=== PATIENT | female | born 1960 | race African-American/Black ===

== ENCOUNTER 2016-11-13 12:14 | Emergency (ER) | payer OTHER ==
--- NOTE | 2016-11-13 12:27 | ED ---
General Adult HPI - General Stated complaint: Chest Pain Time Seen by Provider: 11/13/16 12:18 Source: patient, RN notes reviewed, old records reviewed Mode of arrival: EMS Limitations: no limitations - History of Present Illness Initial comments: This is a 55-year-old female in the ER for reevaluation chest pain. Patient expressed chest pain while in gnosticism today. Patient has history of asthma, CVA and CAD. Patient still currently with chest pain although does feel better. Patient was at a earlier today for close friend, states symptoms began during ceremony. Bystanders do think it was a panic attack - Related Data Home Medications Medication Instructions Recorded Confirmed Albuterol Inhaler [Ventolin 1 - 2 puff INHALATION RT-Q6H PRN 06/05/15 11/13/16 Inhaler] Albuterol Nebulized [Ventolin 2.5 mg INHALATION RT-Q6H PRN 06/05/15 11/13/16 Nebulized] Omeprazole [PriLOSEC] 20 mg PO AC-BRKFST PRN 06/05/15 11/13/16 PARoxetine [Paxil] 20 mg PO DAILY PRN 02/01/16 11/13/16 Allergies Allergy/AdvReac Type Severity Reaction Status Date / Time No Known Allergies Allergy Verified 11/13/16 12:52 Review of Systems ROS Statement: Those systems with pertinent positive or pertinent negative responses have been documented in the HPI. ROS Other: All systems not noted in ROS Statement are negative. Past Medical History Past Medical History: Asthma, Coronary Artery Disease (CAD), CVA/TIA, GERD/ Reflux Additional Past Medical History / Comment(s): PT STATES COLONOSCOPY RESCHEDULED DUE TO INADEQUATE BOWEL PREP. , STATES SHE BROKE HER LEFT ANKLE 06/12/15 AND HAS A CAST. History of Any Multi-Drug Resistant Organisms: None Reported Past Surgical History: Appendectomy, Heart Catheterization With Stent Additional Past Surgical History / Comment(s): laparoscopy Past Anesthesia/Blood Transfusion Reactions: No Reported Reaction Past Psychological History: Depression Smoking Status: Current every day smoker Past Alcohol Use History: Occasional Additional Past Alcohol Use History / Comment(s): has smoked on & off for "years " Past Drug Use History: None Reported - Past Family History Mother Family Medical History: No Reported History General Exam Limitations: no limitations General appearance: alert, in no apparent distress Head exam: Present: atraumatic, normocephalic, normal inspection Eye exam: Present: normal appearance, PERRL, EOMI. Absent: scleral icterus, conjunctival injection, periorbital swelling ENT exam: Present: normal exam, mucous membranes moist Neck exam: Present: normal inspection. Absent: tenderness, meningismus, lymphadenopathy Respiratory exam: Present: normal lung sounds bilaterally. Absent: respiratory distress, wheezes, rales, rhonchi, stridor Cardiovascular Exam: Present: regular rate, normal rhythm, normal heart sounds. Absent: systolic murmur, diastolic murmur, rubs, gallop, clicks GI/Abdominal exam: Present: soft, normal bowel sounds. Absent: distended, tenderness, guarding, rebound, rigid Extremities exam: Present: normal inspection, full ROM, normal capillary refill. Absent: tenderness, pedal edema, joint swelling, calf tenderness Back exam: Present: normal inspection Neurological exam: Present: alert, oriented X3, CN II-XII intact Psychiatric exam: Present: normal affect, normal mood Skin exam: Present: warm, dry, intact, normal color. Absent: rash Course Vital Signs 11/13/16 11/13/16 11/13/16 12:20 13:00 14:53 Temperature 97 F L 97.6 F Pulse Rate 71 64 60 Respiratory 18 16 15 Rate Blood Pressure 132/81 131/86 127/81 O2 Sat by Pulse 94 L 98 98 Oximetry - Reevaluation(s) Reevaluation #1: 11/13/16 15:01 States this time she feels better and the bystanders think she was having panic attack if she was having struggling with dealing with 11/13/16 15:01 EKG Findings - EKG Comments: EKG Findings:: EKG shows normal sinus rhythm rate of 70, ME 206, QRS 102, QTC 397 Medical Decision Making - Medical Decision Making 55 emailed ER for evaluation of chest pain, patient has no cardiac history, remote history of TIA, low risk and she is nonsmoker with no high blood pressure and questionable diabetes, patient was that today and began having chest pain, at this time patient's symptoms are resolved, patient would not like to stay in the hospital and can be discharged home - Lab Data Result diagrams: 11/13/16 12:40 11/13/16 12:40 Lab Results 02/11/13/16 11/13/16 Range/Units 12:40 12:40 12:40 WBC 8.7 (3.8-10.6) k/uL RBC 4.59 (3.80-5.40) m/uL Hgb 14.2 (11.4-16.0) gm/dL Hct 42.1 (34.0-46.0) % MCV 91.6 (80.0-100.0) fL MCH 30.8 (25.0-35.0) pg MCHC 33.7 (31.0-37.0) g/dL RDW 13.8 (11.5-15.5) % Plt Count 240 (150-450) k/uL Neutrophils % 62 % Lymphocytes % 29 % Monocytes % 4 % Eosinophils % 1 % Basophils % 1 % Neutrophils # 5.4 (1.3-7.7) k/uL Lymphocytes # 2.6 (1.0-4.8) k/uL Monocytes # 0.4 (0-1.0) k/uL Eosinophils # 0.1 (0-0.7) k/uL Basophils # 0.1 (0-0.2) k/uL PT (9.0-12.0) sec INR (<1.1) APTT (22.0-30.0) sec Sodium 140 (137-145) mmol/L Potassium 4.7 (3.5-5.1) mmol/L Chloride 107 (98-107) mmol/L Carbon Dioxide 21 L (22-30) mmol/L Anion Gap 12 mmol/L BUN 9 (7-17) mg/dL Creatinine 0.61 (0.52-1.04) mg/dL Est GFR (MDRD) Af Amer >60 (>60 ml/min/1.73 sqM) Est GFR (MDRD) Non-Af >60 (>60 ml/min/1.73 sqM) Glucose 228 H (74-99) mg/dL Calcium 9.6 (8.4-10.2) mg/dL Magnesium 2.0 (1.6-2.3) mg/dL Total Bilirubin 0.5 (0.2-1.3) mg/dL AST 21 (14-36) U/L ALT 28 (9-52) U/L Alkaline Phosphatase 90 (38-126) U/L Total Creatine Kinase 77 (30-135) U/L CK-MB (CK-2) 0.3 (0.0-2.4) ng/mL CK-MB (CK-2) Rel Index 0.4 Troponin I <0.012 (0.000-0.034) ng/mL Total Protein 7.3 (6.3-8.2) g/dL Albumin 4.4 (3.5-5.0) g/dL Lipase 122 (23-300) U/L 11/13/16 Range/Units 12:40 WBC (3.8-10.6) k/uL RBC (3.80-5.40) m/uL Hgb (11.4-16.0) gm/dL Hct (34.0-46.0) % MCV (80.0-100.0) fL MCH (25.0-35.0) pg MCHC (31.0-37.0) g/dL RDW (11.5-15.5) % Plt Count (150-450) k/uL Neutrophils % % Lymphocytes % % Monocytes % % Eosinophils % % Basophils % % Neutrophils # (1.3-7.7) k/uL Lymphocytes # (1.0-4.8) k/uL Monocytes # (0-1.0) k/uL Eosinophils # (0-0.7) k/uL Basophils # (0-0.2) k/uL PT 10.6 (9.0-12.0) sec INR 1.0 (<1.1) APTT 24.1 (22.0-30.0) sec Sodium (137-145) mmol/L Potassium (3.5-5.1) mmol/L Chloride (98-107) mmol/L Carbon Dioxide (22-30) mmol/L Anion Gap mmol/L BUN (7-17) mg/dL Creatinine (0.52-1.04) mg/dL Est GFR (MDRD) Af Amer (>60 ml/min/1.73 sqM) Est GFR (MDRD) Non-Af (>60 ml/min/1.73 sqM) Glucose (74-99) mg/dL Calcium (8.4-10.2) mg/dL Magnesium (1.6-2.3) mg/dL Total Bilirubin (0.2-1.3) mg/dL AST (14-36) U/L ALT (9-52) U/L Alkaline Phosphatase (38-126) U/L Total Creatine Kinase (30-135) U/L CK-MB (CK-2) (0.0-2.4) ng/mL CK-MB (CK-2) Rel Index Troponin I (0.000-0.034) ng/mL Total Protein (6.3-8.2) g/dL Albumin (3.5-5.0) g/dL Lipase (23-300) U/L - Radiology Data Radiology results: report reviewed (Chest x-ray is negative for acute disease), image reviewed Disposition Clinical Impression: Atypical chest pain, Grief reaction Disposition: HOME SELF-CARE Condition: Good Instructions: Chest Pain (ED), Anxiety (ED) Referrals: Edy Self DO [Primary Care Provider] - 1-2 days
[2016-11-13 13:01] LABS: Basophils # (A) 0.1 k/uL (0-0.2); Basophils % (A) 1 %; CH 30.8; CHCM 33.8; Eosinophils # (A) 0.1 k/uL (0-0.7); Eosinophils % (A) 1 %; HCT 42.1 % (34.0-46.0); HDW 2.24; HGB 14.2 gm/dL (11.4-16.0); Luc # (Auto) 0.19; Luc % (Auto) 2; Lymphocytes # (A) 2.6 k/uL (1.0-4.8); Lymphocytes % (A) 29 %; MCH 30.8 pg (25.0-35.0); MCHC 33.7 g/dL (31.0-37.0); MCV 91.6 fL (80.0-100.0); Monocytes # (A) 0.4 k/uL (0-1.0); Monocytes % (A) 4 %; Neutrophils # (A) 5.4 k/uL (1.3-7.7); Neutrophils % (A) 62 %; RBC 4.59 m/uL (3.80-5.40); RDW 13.8 % (11.5-15.5); WBC 8.7 k/uL (3.8-10.6); WBC (Perox) 8.55
[2016-11-13 13:28] LABS: ALT 28 U/L (9-52); AST 21 U/L (14-36); Alkaline Phosphatase 90 U/L (38-126); Anion Gap 12 mmol/L; Blood Urea Nitrogen 9 mg/dL (7-17); Calcium 9.6 mg/dL (8.4-10.2); Carbon Dioxide 21 mmol/L (22-30); Chloride 107 mmol/L (98-107); Glucose 228 mg/dL (74-99); Non-African American GFR(MDRD) >60 (>60 ml/min/1.73 sqM); Potassium 4.7 mmol/L (3.5-5.1); Sodium 140 mmol/L (137-145); Total Bilirubin 0.5 mg/dL (0.2-1.3); Total Protein 7.3 g/dL (6.3-8.2)
[2016-11-13 13:38] LABS: Creatine Kinase 77 U/L (30-135)
--- NOTE | 2016-11-13 13:42 | XR ---
EXAMINATION TYPE: XR chest 2V DATE OF EXAM: 11/13/2016 1:10 PM COMPARISON: 02/01/2016 HISTORY: 55-year-old female with chest pain TECHNIQUE: PA and lateral views FINDINGS: The cardiomediastinal silhouette, aorta, and pulmonary vasculature are within normal limits. Mild dif fuse interstitial prominence unchanged with strandy areas of atelectasis particularly at the left bas e. No consolidation seen. No pleural effusion. IMPRESSION: Chronic changes and strandy left basilar atelectasis. No acute process seen.
[2016-11-13 13:51] LABS: Creatine Kinase MB 0.3 ng/mL (0.0-2.4); Troponin I <0.012 ng/mL (0.000-0.034)
[2016-11-13 13:52] LABS: Partial Thromboplastin Time 24.1 sec (22.0-30.0); Prothrombin Time 10.6 sec (9.0-12.0)
[2016-11-13 14:54] VITALS: PULSE 60; RESP 15
[2016-11-13] MEDS ORDERED: ONDANSETRON ODT 4 MG TAB PO STA (14:58)
[2016-11-13] MEDS ORDERED: LORazepam 1 MG TAB PO STA (14:58)
[2016-11-13] MEDS ORDERED: KETOROLAC 60 MG/2 ML VIAL IM STA (14:58)
[2016-11-13 15:58] VITALS: BP 136/92; TEMP 97.2
== END 2016-11-13 15:58 | disposition home or self-care (01) ==
LOC: EC 12:14
DX: R07.89 Other chest pain (principal); F43.20 Adjustment disorder, unspecified; K21.9 Gastro-esophageal reflux disease without esophagitis; I25.10 Atherosclerotic heart disease of native coronary artery without angina pectoris; Z95.5 Presence of coronary angioplasty implant and graft; F32.9 Major depressive disorder, single episode, unspecified; F17.200 Nicotine dependence, unspecified, uncomplicated; Z79.899 Other long term (current) drug therapy; Z87.09 Personal history of other diseases of the respiratory system; Z86.73 Personal history of transient ischemic attack (TIA), and cerebral infarction without residual deficits
CPT/HCPCS: 36415; 93005; 80053; 82550; 82553; 83690; 83735; 84484; 85025; 85610; 85730; 71020; 99285; 96372; J1885